=== PATIENT | male | born 1950 | race Caucasian/White ===

== ENCOUNTER → 2016-07-06 | Outpatient (CLI) | payer OTHER ==
[~2016-07-06] MED LIST: ALBUAER19 INH; ALLO300T2 PO; CARV3.122 PO; CICL80AE INH; HYDR-3419 PO; LOSA1TAB38 PO; MONT1TAB3 PO; MULT-188 PO; NSNN50; TRAZ50TA35 PO; [UNRECOGNIZED DRUG - CODE] OPB
--- NOTE | 2016-07-06 12:18 | DIAGNOSTIC IMAGING REPORT ---
CT SCAN OF THE CHEST WITHOUT IV CONTRAST CLINICAL HISTORY: Follow-up pulmonary nodule. COMPARISON STUDY: Chest CT dated 06/16/2015. TECHNIQUE: CT scan of the thorax was performed from the thoracic inlet to the upper abdomen. Images are reviewed in the axial, sagittal, and coronal planes. IV contrast was not administered for this examination. CT DOSE: 811.43 mGy.cm FINDINGS: Thyroid: Imaged portions of the thyroid gland are normal in size and attenuation. Thoracic aorta: There is mild atherosclerotic calcification of the thoracic aorta, which is normal in caliber and demonstrates standard 3-vessel arch anatomy. Heart: The heart is normal in size and configuration, and without pericardial effusion. The pulmonary trunk is normal in caliber. There are coronary artery calcifications. Lungs and pleural spaces: There is unchanged appearance of a 3 mm left lower lobe pulmonary nodule seen on axial image #196. A punctate subpleural granuloma is also identified in the left lower lobe. No new pulmonary nodule is identified. There is no airspace consolidation or pleural effusion. The trachea and central airways are clear. Mediastinum: There is no mediastinal lymphadenopathy. Arabella: Not well assessed without IV contrast. Axillae: There is no axillary lymphadenopathy. Upper abdomen: A tiny hiatal hernia is identified. Cortical atrophy is noted in the partially visualized kidneys. Skeletal structures: The skeletal structures are osteopenic. No lytic or blastic bony lesions are seen. 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 There are healed right-sided rib fractures. IMPRESSION: 1. There is an indeterminant but low suspicion 3 mm left lower lobe pulmonary nodule. See below. 2. No new pulmonary nodule is identified. 3. There is no airspace consolidation or pleural effusion. 4. Additional changes as above. Please refer to below summary of Fleischner criteria recommendations for follow-up of incidental CT nodules (Uvaldo Becker, Guidelines for management of small pulmonary nodules detected on CT scans: A statement from the Fleischner Society, Radiology 237: [phone].) Low Risk Patient: Minimal or no smoking or other known risk factors for malignancy <=4 mm: No follow-up needed. >4-6 mm: Initial follow-up CT at 12 months; if unchanged, no further follow-up. >6-8 mm: Initial follow-up CT at 6-12 months then at 18-24 months if no change. >8 mm: Follow-up CT at \R\3, 9, 24 months, or PET and/or biopsy. High Risk Patient: History of smoking or other known risk factors <=4 mm: Follow-up at 12 months; if unchanged, no further follow-up. >4-6 mm: Initial follow-up CT at 6-12 months then at 18-24 months if no change. >6-8 mm: Initial follow-up CT at 3-6 months then at 9-12 and 24 months if no change. >8 mm: Same as low risk patient. Note: Nodule size measured as average of length and width. Ground glass or partly solid nodules may require longer follow-up to exclude indolent adenocarcinoma. Electronically signed by: Johnny Angulo M.D. 07/06/2016 12:16 PM Dictated Date/Time: 07/06/2016 12:10 PM
== END | disposition home or self-care (01) ==
LOC: C.CTS 11:56
PROVIDERS: ATTEND Family Medicine
DX: R91.1 Solitary pulmonary nodule (principal); Z87.891 Personal history of nicotine dependence

== ENCOUNTER → 2018-01-05 | Outpatient (CLI) | payer OTHER ==
[2018-01-05 16:06] LABS: BASO % 0.3 %; BASO ABS # 0.02 K/uL (0-0.2); EOS ABS # 0.24 K/uL (0-0.5); HEMATOCRIT 40.6 % (42-52); HEMOGLOBIN 13.4 g/dL (14.0-18.0); IG# 0.02 K/uL (0.00-0.02); LYMPH % 19.6 %; LYMPH ABS # 1.18 K/uL (1.2-3.4); MEAN CELL VOLUME 92.1 fL (80-100); MEAN CORPUSCULAR HEMOGLOBIN 30.4 pg (25-34); MEAN PLATELET VOLUME 9.8 fL (7.4-10.4); MONO % 11.6 %; NEUT % 64.2 %; NEUT ABS # 3.85 K/uL (1.4-6.5); PLATELET COUNT 176 K/uL (130-400); RED CELL DISTRIBUTION WIDTH SD 43.6 fL (36.4-46.3); WHITE BLOOD COUNT 6.01 K/uL (4.8-10.8)
[2018-01-05 16:16] LABS: PTT PATIENT 25.2 SECONDS (21.0-31.0)
== END | disposition home or self-care (01) ==
LOC: C.LAB1850 15:12
PROVIDERS: ATTEND Family Medicine
DX: D69.2 Other nonthrombocytopenic purpura (principal); I10 Essential (primary) hypertension